=== PATIENT | female | born 1985 | race American Indian/Alaskan Native ===

== ENCOUNTER 2019-05-11 00:42 | Emergency (ER) | payer SELFPAY ==
[2019-05-11] MEDS ORDERED: NORCO 5/325 PO ONE (02:20)
[2019-05-11] MEDS ORDERED: BOOSTRIX IM ONE (02:20)
--- NOTE | 2019-05-11 03:21 | XRay Report ---
LEFT HAND 3 VIEWS INDICATION / CLINICAL INFORMATION: Left hand laceration. COMPARISON: None available. FINDINGS: BONES / JOINT(S): No acute fracture or subluxation. No significant arthritis. SOFT TISSUES: I do not identify a radiopaque foreign body. ADDITIONAL FINDINGS: None. IMPRESSION: No evidence of fracture or radiopaque foreign body. Signer Name: Ayush Phipps MD Signed: 05/11/2019 3:16 AM Workstation Name: [id number]
--- NOTE | 2019-05-11 03:30 | Emergency Department Report ---
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 denies: back pain, joint swelling, arthralgia Skin: denies: rash, lesions Neurological: denies: headache, weakness, paresthesias Psychiatric: denies: anxiety, depression Hematological/Lymphatic: denies: easy bleeding, easy bruising ED Past Medical Hx - Past Medical History Previous Medical History?: No - Surgical History Past Surgical History?: No - Social History Smoking Status: Current Every Day Smoker Substance Use Type: Marijuana - Medications Home Medications: Home Medications Medication Instructions Recorded Confirmed Last Taken Type cephALEXin [Keflex] 500 mg PO Q8HR 10 Days #30 cap 05/11/19 Unknown Rx traMADol [Ultram] 50 mg PO Q6HR PRN #12 tablet 05/11/19 Unknown Rx Laceration Physical Exam - Exam General: Vital signs noted. No distress. Alert and acting appropriately. Wound Length (cm): 1 (less than 1 cm) Laceration Location: Upper Extremity (palm left hand) Laceration Exam: Yes Normal Distal CMS, No Foreign Body, No Exposed Tendon, Vessel, or Nerve, No Tendon Injury - Laceration /Wound Repair Left Palm Hand Wound Location: upper extremity Wound Length (cm): 1 (less than 1 cm ) Wound's Depth, Shape: superficial Wound Explored: clean Irrigated w/ Saline (ccs): 10 Betadine Prep?: Yes Anesthesia: 1% Lidocaine Volume Anesthetic (ccs): 1 Wound Debrided: none required Wound Repaired With: sutures Suture Size/Type: 4:0, nylon Number of Sutures: 2 Layer Closure?: No Sterile Dressing Applied?: Yes Progress: Wound clean and Betadine solution and anesthesia with 1% lidocaine plain 1 mL manually explored no foreign bodies were irrigated with 10 mL sterile saline x- ray noted no fractional foreign body CMS intact no nerve tendon or muscle damage wound closed with nylon 4.02 sutures all bleeding is controlled sterile dressing applied patient given wound care instructions are last understanding of same CMS remains intact ED Medical Decision Making - Radiology Data Radiology results: report reviewed, image reviewed Ordering Physician: KOJO LOPEZ NP Date of Service: 05/11/19 Procedure(s): XR hand 3+V LT Accession Number(s): [id number] cc: KOJO LOPEZ NP Fluoro Time In Minutes: LEFT HAND 3 VIEWS INDICATION / CLINICAL INFORMATION: Left hand laceration. COMPARISON: None available. FINDINGS: BONES / JOINT(S): No acute fracture or subluxation. No significant arthritis. SOFT TISSUES: I do not identify a radiopaque foreign body. ADDITIONAL FINDINGS: None. IMPRESSION: No evidence of fracture or radiopaque foreign body. Signer Name: Ayush Phipps MD Signed: 05/11/2019 3:16 AM Workstation Name: [id number] Transcribed By: RT Dictated By: Ayush Phipps MD Electronically Authenticated By: Ayush Phipps MD Signed Date/Time: 05/11/19315 DD/ 4 TD/TT: - Medical Decision Making left hand laceration repaired see procedure note, rom intact all bleeding controlled pt given wound care instructions. will follow up with pcp in 2 days for wound check and 7-10 days for suture removal Critical care attestation.: If time is entered above; I have spent that time in minutes in the direct care of this critically ill patient, excluding procedure time. ED Disposition Clinical Impression: Laceration of hand Qualifiers: Encounter type: initial encounter Foreign body presence: without foreign body Laterality: left Qualified Code(s): S61.412A - Laceration without foreign body of left hand, initial encounter Disposition: - TO HOME OR SELFCARE Is pt being admited?: No Does the pt Need Aspirin: No Condition: Stable Instructions: Laceration (ED), Suture Care (ED) Prescriptions: cephALEXin [Keflex] 500 mg PO Q8HR 10 Days #30 cap traMADol [Ultram] 50 mg PO Q6HR PRN #12 tablet PRN Reason: Pain Referrals: PRIMARY CARE,MD [Primary Care Provider] - 3-5 Days Forms: Work/School Release Form(ED) Time of Disposition: 03:33
== END 2019-05-11 03:50 | disposition home or self-care (01) ==
LOC: ED 00:42
DX: S61.412A Laceration without foreign body of left hand, initial encounter (principal); F17.200 Nicotine dependence, unspecified, uncomplicated; F12.10 Cannabis abuse, uncomplicated; W26.0XXA Contact with knife, initial encounter; Y93.89 Activity, other specified; Y92.89 Other specified places as the place of occurrence of the external cause; Y99.8 Other external cause status
CPT/HCPCS: 90471; 90715